=== PATIENT | male | born 1965 | race Hispanic/Latino ===

== ENCOUNTER 2018-08-20 10:06 | Emergency (ER) | payer SELFPAY ==
[~2018-08-20] VITALS: Ht 185.4 cm; Wt 72.1 kg
[2018-08-20] MEDS ORDERED: IBUPROFEN 600 MG TAB PO STA (10:27)
--- NOTE | 2018-08-20 11:29 | Diagnostic Imaging Report ---
Exam: Right knee 3 views History: Pain Comparison: None. Findings: No fracture or malalignment. A bipartite patella. Joint spaces preserved. Moderate joint effusion. Impression: No acute osseous abnormality Moderate joint effusion. Signed by: Dr. Koko Michele M.D. on 08/20/2018 11:26 AM
== END 2018-08-20 12:16 | disposition home or self-care (01) ==
LOC: ER 10:06
DX: M25.561 Pain in right knee (principal); S80.01XA Contusion of right knee, initial encounter; W18.30XA Fall on same level, unspecified, initial encounter; Y92.488 Other paved roadways as the place of occurrence of the external cause; R26.2 Difficulty in walking, not elsewhere classified; Z87.891 Personal history of nicotine dependence
CPT/HCPCS: 99284